=== PATIENT | male | born 1980 | race Caucasian/White ===

== ENCOUNTER 2018-04-04 19:31 | Observation (INO) ==
[2018-04-04] MEDS ORDERED: Temazepam 15 MG Capsule PO PRN (22:37)
[2018-04-04] MEDS ORDERED: Acetaminophen 325 MG Tablet PO PRN (22:37)
[2018-04-04] MEDS ORDERED: Bisacodyl 10 MG Supp RECTAL PRN (22:37)
[2018-04-04] MEDS: Sod Chloride 0.9% Inj 1,000 ML IV.CONT SCH (23:29)
[2018-04-05] MEDS ORDERED: Dextrose 50% in Water 50 ML Vial IV.PUSH PRN (07:38)
--- NOTE | 2018-04-05 07:47 | P.HP ---
History of Present Illness Primary Care Physician: UNKNOWN Chief Complaint: Abdominal pain, nausea, vomiting, fatigue History of Present Illness: 38-year-old male with known history of hypertension, diabetes, rheumatoid arthritis who presented to the hospital because of a plethora of symptoms. Over the last 3-5 days he has had multiple symptoms to include abdominal pain, fatigue, nausea, vomiting, loose stools. Patient was not getting any better so he came to emergency department for evaluation. Patient had workup performed which did indicate acute renal failure, lactic acidosis and it was recommended by the ER physician and the patient be observed in the hospital for further evaluation and management. Patient states that he cannot really explain the abdominal pain that is been experiencing but he did have episodes of nausea with vomiting. He denies any fever, chills, dark colored stools, blood in stool , hematemesis. Patient is diabetic and is on multiple medications. He also has hypertension and is also on Lasix,ARB,metolazone. This could have contributed to his acute renal failure. Patient does not indicate that he has any chronic kidney disease. Patient require further workup for completeness of evaluation. Patient does work at [employer], he is not exposed to any sick contacts. - Diagnosis (1) Abdominal pain (2) Nausea & vomiting (3) Acute renal failure (4) Lactic acidosis (5) Elevated liver enzymes Review of Systems All other systems reviewed negative except as stated in HPI Constitutional: Reports fatigue Gastrointestinal: Reports abdominal pain, Reports change in stools, Reports nausea, Reports vomiting PMFSH - History History Provided By: Patient - Medical History Medical History: Medical History (Last Reviewed 04/05/18 @ 07:31 by HERNANDO Manning) Hypertension Rheumatoid arthritis Type 2 diabetes mellitus - Surgical History Surgical History: Surgical History (Last Reviewed 04/05/18 @ 07:31 by HERNANDO Manning) H/O elbow surgery - Family History Family History: Family History (Last Updated 04/05/18 @ 07:31 by HERNANDO Manning) Father History of heart attack Mother No pertinent family history - Tobacco History Second Hand Smoke Exposure: No Tobacco Use In Past 30 Days: No (QUIT 20 YEARS AGO) Smoking Status: Former smoker Tobacco Type: Cigarettes Number of Pack Years (if former smoker): 3 - Alcohol History How Often Do You Have a Drink Containing Alcohol: Never - Substance Use History Substance History: No History of Abuse Medications and Allergies Active Medications: Active Medications Acetaminophen (Tylenol) 650 mg PO Q4H PRN PRN Reason: Temp > 100.4 Al Hydroxide/Mg Hydroxide (Milk Of Magnesia Liq) 30 ml PO Q12H PRN PRN Reason: Mild Constipation Bisacodyl (Dulcolax Supp) 10 mg RECTAL DAILY PRN PRN Reason: SEVERE CONSITIPATION Dextrose (D50w Vial) 50 ml IV.PUSH UNSCH PRN PRN Reason: PER HYPOGLYCEMIA PROTOCOL Glucagon (Glucagon Inj) 1 mg OTHER PRN PRN PRN Reason: for Hypoglycemia Protocol Sodium Chloride (Ns Inj) 1,000 mls @ 100 mls/hr IV.CONT .Q10H JOSE CRUZ Last Admin: 04/04/18 23:29 Dose: 100 mls/hr Insulin Aspart (Novolog Insulin Correctional Sugar Inj) 0 unit SQ ACHS JOSE CRUZ; Protocol Lactulose (Lactulose Liq) 30 ml PO DAILY PRN PRN Reason: SEVERE CONSITIPATION Ondansetron HCl (Zofran Inj) 4 mg IV.PUSH Q6H PRN PRN Reason: NAUSEA OR VOMITING Senna/Docusate Sodium (Farrah-Colace) 1 tab PO BID JOSE CRUZ Sennosides (Senokot) 17.2 mg PO Q12H PRN PRN Reason: Moderate Constipation Sodium Chloride (Ns Flush) 2 ml IV.FLUSH BID JOSE CRUZ Sodium Chloride (Ns Flush) 2 ml IV.FLUSH PRN PRN PRN Reason: FLUSH AFTER USING IV ACCESS Temazepam (Restoril) 15 mg PO HS PRN PRN Reason: INSOMNIA Allergies Allergy/AdvReac Type Severity Reaction Status Date / Time No Known Allergies Allergy Unverified 04/04/18 17:30 Home Medications Medication Instructions Recorded Confirmed Type dapagliflozin-metformin [Xigduo XR] 2 tab PO DAILY 04/04/18 04/05/18 History etanercept [Enbrel] 50 mg SUB-Q QWEEK 04/04/18 04/05/18 History folic acid 1 mg PO DAILY 04/04/18 04/05/18 History furosemide [Lasix] 20 mg PO DAILY 04/04/18 04/05/18 History insulin degludec-liraglutide 35 units SUB-Q DAILY 04/04/18 04/05/18 History [Xultophy 100/3.6] losartan 100 mg PO DAILY 04/04/18 04/05/18 History methotrexate sodium 2.5 mg PO DAILY 04/04/18 04/05/18 History metolazone 5 mg PO DAILY 04/04/18 04/05/18 History potassium chloride 20 meq PO DAILY 04/04/18 04/05/18 History prednisone 20 mg PO DAILY 04/04/18 04/05/18 History Exam Vital signs: Vital Signs 04/04/18 21:49 04/05/18 04:00 04/05/18 07:16 Temperature 96.2 F L 96.5 F L 96.6 F L Pulse Rate 95 H 83 80 Respiratory Rate 20 20 20 Blood Pressure 121/60 121/61 134/68 Pulse Oximetry 98 96 98 Intake & Output 04/04/18 04/05/18 04/05/18 18:59 06:59 18:59 Intake Total 720 / 720 Balance 720 / 720 Weight 133.6 kg Intake: Oral 720 / 720 Other: # Voids 1 # Bowel Movements 1 Narrative: GENERAL: Well-developed, well-nourished, in no acute distress. alert and orientated HEENT: Head is normocephalic without any lesions or masses noted. Facial features are symmetric. Eyes: Pupils equal round reactive to light. Extraocular muscles are intact. Conjunctivae were clear. Oropharyngeal: Pharynx without any erythema edema. Tongue is midline without deviation. Buccal mucosa is moist without any masses or lesions NECK: Supple without any masses. Trachea midline no deviation. No JVD, no bruits are appreciated. Posterior neck does have some excoriation noted around a skin fold. However no exudates, erythema CARDIAC: Regular rhythm, regular rate. S1/S2 are heard. No murmurs gallops or rubs. LUNGS: Clear to auscultation bilaterally. No wheeze, rhonchi or rales. No use of accessory muscles on inspiration or expiration. ABDOMEN: Soft, nontender. Nondistended. Bowel sounds heard in all 4 quadrants. No organomegaly or masses. Negative rebound, negative guarding EXTREMITIES: No edema, pulses are equal bilaterally. No cyanosis or clubbing NEUROLOGY: Mood and affect appear appropriate. Cranial nerves II through XII grossly intact. Muscle strength 5/5 in upper and lower extremities bilaterally. Deep tendon reflexes are 2+ in upper and lower extremities bilaterally. Results - Labs CBC & Chem 7: 04/05/18 07:15 04/05/18 07:15 Caprini VTE Risk Assessment Caprini VTE Risk Assessment: No/Low Risk (score <= 1) Caprini Risk Assessment Model: Point Value = 1 Point Value = 2 Point Value = 3 Point Value = 5 Age 41-60 Minor surgery BMI > 25 kg/m2 Swollen legs Varicose veins or History of unexplained or recurrent spontaneous Oral contraceptives or hormone replacement Sepsis (< 1 month) Serious lung disease, including pneumonia (< 1 month) Abnormal pulmonary function Acute myocardial infarction Congestive heart failure (< 1 month) History of inflammatory bowel disease Medical patient at bed rest Age 61-74 Arthroscopic surgery Major open surgery (> 45 min) Laparoscopic surgery (> 45 min) Malignancy Confined to bed (> 72 hours) Immobilizing plaster cast Central venous access Age >= 75 History of VTE Family history of VTE Factor V Leiden Prothrombin [id number] Lupus anticoagulant Anticardiolipin antibodies Elevated serum homocysteine Heparin-induced thrombocytopenia Other congenital or acquired thrombophilia Stroke (< 1 month) Elective arthroplasty Hip, pelvis, or leg fracture Acute spinal cord injury (< 1 month) Prophylaxis Regimen: Total Risk Factor Score Risk Level Prophylaxis Regimen 0-1 Low Early ambulation 2 Moderate Order ONE of the following: *Sequential Compression Device (SCD) *Heparin 5000 units SQ BID 3-4 Higher Order ONE of the following medications: *Heparin 5000 units SQ TID *Enoxaparin/Lovenox 40 mg SQ daily (WT < 150 kg, CrCl > 30 mL/min) *Enoxaparin/Lovenox 30 mg SQ daily (WT < 150 kg, CrCl > 10-29 mL/min) *Enoxaparin/Lovenox 30 mg SQ BID (WT < 150 kg, CrCl > 30 mL/min) AND/OR *Sequential Compression Device (SCD) 5 or more Highest Order ONE of the following medications: *Heparin 5000 units SQ TID (Preferred with Epidurals) *Enoxaparin/Lovenox 40 mg SQ daily (WT < 150 kg, CrCl > 30 mL/min) *Enoxaparin/Lovenox 30 mg SQ daily (WT < 150 kg, CrCl > 10-29 mL/min) *Enoxaparin/Lovenox 30 mg SQ BID (WT < 150 kg, CrCl > 30 mL/min) AND *Sequential Compression Device (SCD) Assessment and Plan - Assessment (1) Abdominal pain Code(s): R10.9 - Unspecified abdominal pain Status: Acute (2) Nausea & vomiting Code(s): R11.2 - Nausea with vomiting, unspecified Status: Acute (3) Acute renal failure Code(s): N17.9 - Acute kidney failure, unspecified Status: Acute (4) Lactic acidosis Code(s): E87.2 - Acidosis Status: Acute (5) Elevated liver enzymes Code(s): R74.8 - Abnormal levels of other serum enzymes Status: Acute - Plan Systemic inflammatory response syndrome -Patient is criteria with tachycardia, lactic acidosis, acute renal failure, no infection source has been identified at this time. Decide need further evaluation -Patient was given single dose of Rocephin emergency department, will avoid antibiotics at this time until infectious source can be identified -Chest x-ray do not indicate any acute abnormality -Urinalysis with clear without any signs of infection -Given the patient presenting symptoms and laboratory studies. Patient will require CT of the abdomen done stat to evaluate any abnormality, infection source -Continue follow blood cultures Acute renal failure -No history of chronic kidney disease, this is multifactorial with patient having nausea, vomiting, loose stools, multiple medications that can cause worsening renal function -We will need to await CT of the abdomen to rule out any etiologies such as obstructive uropathy -Continue IV fluids -Continue monitor renal function -Avoid nephrotoxins Elevated liver enzymes, unknown etiology -Awaiting CT scan for further evaluation -Continue follow liver enzymes -Obtain hepatitis panel Diabetes -Accu-Cheks with sliding scale insulin -Avoid metformin at this time Hypertension -Blood pressure stable at this time Rheumatoid arthritis -Continue folic acid DVT prevention -Sequential compression devices
[2018-04-05 07:56] LABS: Baso # (Auto) 0.1 th/mm3 (0.0-0.2); Baso % (Auto) 0.8 % (0.0-2.0); Eos # (Auto) 0.1 th/mm3 (0.0-0.4); Eos % (Auto) 1.8 % (0.0-4.0); Hematocrit 36.7 % (39.0-51.0); Lymph # (Auto) 2.3 th/mm3 (1.0-4.8); Lymph % (Auto) 27.4 % (9.0-44.0); Mean Corpuscular HGB Conc 35.5 % (32.0-36.0); Mean Corpuscular Hemoglobin 29.5 pg (27.0-34.0); Mean Corpuscular Volume 82.9 fL (80.0-100.0); Mean Platelet Volume 8.6 fL (7.0-11.0); Mono # (Auto) 0.9 th/mm3 (0.0-0.9); Mono % (Auto) 11.4 % (0.0-8.0); Neut # (Auto) 4.9 th/mm3 (1.8-7.7); Neut % (Auto) 58.6 % (16.0-70.0); Platelet Count 217 th/mm3 (150-450); Red Blood Count 4.42 mil/mm3 (4.50-5.90); Red Cell Distribution Width 16.4 % (11.6-17.2); White Blood Count 8.3 th/mm3 (4.0-11.0)
[2018-04-05] MEDS: Insulin NovoLOG Aspart Correctional Sugar Inj SQ SCH ×4 (07:56→20:08)
[2018-04-05] MEDS ORDERED: Diatrizoate Meglum/Diatrizoate Sod Liq 9 ML UDC PO ONE (08:00)
[2018-04-05 08:04] LABS: Chloride 96 meq/L (98-107); Potassium 3.7 meq/L (3.5-5.1); Sodium 135 meq/L (136-145)
[2018-04-05 08:09] LABS: Calcium 8.5 mg/dL (8.5-10.1)
[2018-04-05 08:10] LABS: Anion Gap 6 meq/L (5-15); Blood Urea Nitrogen 65 mg/dL (7-18); Carbon Dioxide 32.8 meq/L (21.0-32.0); Glucose,Random 122 mg/dL (74-106)
[2018-04-05 08:13] LABS: Glomerular Filtration Rate 52 mL/min (>89)
[2018-04-05 08:55] LABS: Albumin 3.4 g/dL (3.4-5.0)
[2018-04-05] MEDS: Sod Chloride 0.9% Inj 1,000 ML IV.CONT SCH ×2 (08:55→20:08)
[2018-04-05] MEDS: Senna/Docusate Sodium 8.6/50 MG Tablet PO SCH ×2 (08:56→20:09)
[2018-04-05 08:58] LABS: Alanine Aminotransferase 63 U/L (12-78); Aspartate Aminotransferase 30 U/L (15-37)
[2018-04-05 09:00] LABS: Total Protein 7.6 g/dL (6.4-8.2)
[2018-04-05 09:02] LABS: Alkaline Phosphatase 53 U/L (45-117)
[2018-04-05 10:41] LABS: Hepatitits B Surface Antigen Nonreactive (Nonreactive)
[2018-04-05 11:06] LABS: Hepatitis A IgM Antibody Nonreactive (Nonreactive)
--- NOTE | 2018-04-05 11:17 | CT ---
EXAM DATE: 04/05/2018 11:08 AM EDT AGE/SEX: 38 years / Male INDICATIONS: Elevated enzymes and acute renal failure, with nausea and vomiting. CLINICAL DATA: This is the patient's initial encounter. Patient reports that signs and symptoms have been present for 3 days and indicates a pain score of 0/10. MEDICAL/SURGICAL HISTORY: Diabetes. Hypertension. . Elbow surgery. RADIATION DOSE: 25.01 CTDI (mGy) ; Patient body habitus COMPARISON: No prior exams available for comparison. TECHNIQUE: Multiple contiguous axial images were obtained through the abdomen. Images were obtained using multiple row detector helical technique. Using automated exposure control and adjustment of the mA and/or kV according to patient size, radiation dose was kept as low as reasonably achievable to o btain optimal diagnostic quality images. DICOM format image data is available electronically for rev iew and comparison. FINDINGS: Lower Lungs: The visualized lower lungs are clear. Liver: The liver is decreased in attenuation without space-occupying lesion. There is no dilation of the biliary tree. No abdominal ascites. Spleen: Homogeneous density without enlargement. Pancreas: Unremarkable without mass or calcification. Kidneys: Normal in size and shape. No evidence of mass or hydronephrosis. Adrenal Glands: Unremarkable. Aorta: The aorta and proximal iliac vessels are grossly unremarkable without aneurysmal dilation. Bowel/Mesentery: The bowel loops are grossly unremarkable. The cecum and sigmoid colon have a normal configuration. Normal appendix. Abdominal Wall: Intact. Retroperitoneum: No evidence of adenopathy in the retrocrural, para-aortic, or deep pelvic regions. Bladder: Contours are smooth. Reproductive Organs: No abnormal masses or calcifications seen. Inguinal: The inguinal region is unremarkable without evidence of adenopathy. Bony Structures: Unremarkable. CONCLUSION: 1. Moderate hepatic steatosis. 2. No renal calculi or hydronephrosis. Electronically signed by: Antonio Lopez MD 04/05/2018 11:15 AM EDT
[2018-04-06 05:56] LABS: Baso # (Auto) 0.1 th/mm3 (0.0-0.2); Baso % (Auto) 1.1 % (0.0-2.0); Eos # (Auto) 0.2 th/mm3 (0.0-0.4); Eos % (Auto) 3.1 % (0.0-4.0); Hemoglobin 12.9 gm/dL (13.0-17.0); Lymph # (Auto) 2.4 th/mm3 (1.0-4.8); Lymph % (Auto) 37.5 % (9.0-44.0); Mean Corpuscular HGB Conc 33.9 % (32.0-36.0); Mean Corpuscular Hemoglobin 28.9 pg (27.0-34.0); Mean Corpuscular Volume 85.4 fL (80.0-100.0); Mean Platelet Volume 7.7 fL (7.0-11.0); Mono # (Auto) 0.7 th/mm3 (0.0-0.9); Mono % (Auto) 11.3 % (0.0-8.0); Platelet Count 204 th/mm3 (150-450); Red Blood Count 4.45 mil/mm3 (4.50-5.90); Red Cell Distribution Width 15.9 % (11.6-17.2); White Blood Count 6.4 th/mm3 (4.0-11.0)
[2018-04-06 06:07] LABS: Chloride 101 meq/L (98-107); Potassium 3.1 meq/L (3.5-5.1); Sodium 138 meq/L (136-145)
[2018-04-06 06:10] LABS: Albumin 3.2 g/dL (3.4-5.0); Anion Gap 5 meq/L (5-15); Calcium 8.5 mg/dL (8.5-10.1); Carbon Dioxide 32.5 meq/L (21.0-32.0); Glucose,Random 118 mg/dL (74-106)
[2018-04-06 06:12] LABS: Blood Urea Nitrogen 29 mg/dL (7-18)
[2018-04-06 06:21] LABS: Alanine Aminotransferase 72 U/L (12-78); Alkaline Phosphatase 51 U/L (45-117); Aspartate Aminotransferase 51 U/L (15-37); Glomerular Filtration Rate Greater Than 89 mL/min (>89); Total Protein 6.9 g/dL (6.4-8.2)
[2018-04-06] MEDS: Insulin NovoLOG Aspart Correctional Sugar Inj SQ SCH (07:40)
--- NOTE | 2018-04-06 08:35 | P.DS ---
Date of admission: 04/04/18 21:37 Primary care physician: UNKNOWN Attending physician on discharge: Jenelle Zarate Anticipated date of discharge: 04/06/18 Brief History from admission: 38-year-old male with known history of hypertension, diabetes, rheumatoid arthritis who presented to the hospital because of a plethora of symptoms. Over the last 3-5 days he has had multiple symptoms to include abdominal pain, fatigue, nausea, vomiting, loose stools. Patient was not getting any better so he came to emergency department for evaluation. Patient had workup performed which did indicate acute renal failure, lactic acidosis and it was recommended by the ER physician and the patient be observed in the hospital for further evaluation and management. Patient states that he cannot really explain the abdominal pain that is been experiencing but he did have episodes of nausea with vomiting. He denies any fever, chills, dark colored stools, blood in stool , hematemesis. Patient is diabetic and is on multiple medications. He also has hypertension and is also on Lasix,ARB,metolazone. This could have contributed to his acute renal failure. Patient does not indicate that he has any chronic kidney disease. Patient require further workup for completeness of evaluation. Patient does work at [employer], he is not exposed to any sick contacts. DS: Diagnosis - Discharge Diagnosis (1) Abdominal pain Status: Acute (2) Nausea & vomiting Status: Acute (3) Acute renal failure Status: Acute (4) Lactic acidosis Status: Acute (5) Elevated liver enzymes Status: Acute DS: Medications - Discharge Medications Prescriptions: insulin degludec-liraglutide [Xultophy 100/3.6] 15 units SUB-Q DAILY #1 vial losartan [Cozaar] 50 mg PO DAILY #30 tab DS: Summary Hospital Course: 38-year-old male who originally presented the hospital because of abdominal discomfort, nausea, vomiting. Patient had workup done emergency department found to have elevated liver enzymes, acute renal failure. Patient was admitted to the hospital with further evaluation with CT of the abdomen which did show hepatic steatosis. Liver enzymes did improve and go to normal. Hepatitis profile was negative for any viral hepatitis. Patient was tolerating diet in the hospital. Patient was maintained on IV fluids with significant improvement of his renal function. Upon reviewing patient's medication list it does appears that he was on multiple medications that could also cause the renal failure in conjunction with the mild dehydration. Patient's metformin,ARB , Lasix, metolazone was held. Patient's renal function did return to normal. Patient was counseled that his blood pressure remained quite stable during his stay in the hospital. Would recommend discontinuation of the diuretics, will resume losartan at half the dose to continue with renal protection. Will discontinue metformin at this time. Patient's diabetes was in rather good control while here in the hospital. He only received 8 units of insulin during his entire stay. It was discussed with the patient that he needs to check his blood sugars 3 times daily before meals and at bedtime, keep a running log. Discontinue his combination medication with metformin. Continue his long- acting insulin at half the dose. Patient should follow up with biomedical doctor for continued adjustment of his medications. Patient is doing quite well. Patient very eager to go home. Patient clinically stable we will discharge patient accordingly. - Time Spent with Patient Total time spent providing and/or coordinating discharge services: Greater than 30 minutes - Quality: VTE Deep Vein Thrombosis/Pulmonary Embolism Present on Admission: No Exam Vital signs: Vital Signs 04/05/18 10:56 04/05/18 15:04 04/05/18 20:00 Temperature 96.8 F L 96.5 F L 97.0 F L Pulse Rate 76 74 104 H Respiratory Rate 20 20 20 Blood Pressure 130/70 138/74 138/76 Pulse Oximetry 98 98 96 04/06/18 00:00 Temperature 96.9 F L Pulse Rate 72 Respiratory Rate 20 Blood Pressure 128/70 Pulse Oximetry Intake & Output 04/05/18 04/06/18 04/06/18 18:59 06:59 18:59 Intake Total 3200 / 3200 240 / 240 Balance 3200 / 3200 240 / 240 Weight 133.7 kg Intake: IV 1999 NS Inj 1,000 ML @ 100 mls/hr IV 1999 .CONT .Q10H JOSE CRUZ Rx#:[id number] Oral 1200 / 1200 240 / 240 Other: # Voids 4 3 # Bowel Movements 1 Narrative: GENERAL: Well-developed, well-nourished, in no acute distress. alert and orientated HEENT: Head is normocephalic without any lesions or masses noted. Facial features are symmetric. Eyes: Extraocular muscles are intact. Conjunctivae were clear. NECK: Supple without any masses. Trachea midline no deviation. No JVD, CARDIAC: Regular rhythm, regular rate. S1/S2 are heard. No murmurs gallops or rubs. LUNGS: Clear to auscultation bilaterally. No wheeze, rhonchi or rales. No use of accessory muscles on inspiration or expiration. ABDOMEN: Soft, nontender. Nondistended. Bowel sounds heard in all 4 quadrants. No organomegaly or masses. Negative rebound, negative guarding EXTREMITIES: No edema, pulses are equal bilaterally. No cyanosis or clubbing NEUROLOGY: Mood and affect appear appropriate. Cranial nerves II through XII grossly intact. Moving all extremities, speech is clear Results Procedures completed during hospitalization: none Labs on day of discharge: Labs from last 24 hours 04/06/18 04/06/18 04/05/18 05:45 05:45 20:01 CBC w Diff Auto diff final WBC 6.4 RBC 4.45 L Hgb 12.9 L Hct 38.0 L MCV 85.4 MCH 28.9 MCHC 33.9 RDW 15.9 Plt Count 204 MPV 7.7 Neut % (Auto) 47.0 Lymph % (Auto) 37.5 [place] % (Auto) 11.3 H Eos % (Auto) 3.1 Baso % (Auto) 1.1 Neut # (Auto) 3.0 Lymph # (Auto) 2.4 [place] # (Auto) 0.7 Eos # (Auto) 0.2 Baso # (Auto) 0.1 WBC Differential . Differential Comment . Sodium 138 Potassium 3.1 L Chloride 101 Carbon Dioxide 32.5 H Anion Gap 5 BUN 29 H Creatinine 0.84 Estimated GFR Greater than 89 POC Glucose 177 H Random Glucose 118 H Lactic Acid Calcium 8.5 Total Bilirubin 0.8 AST 51 H ALT 72 Alkaline Phosphatase 51 Total Protein 6.9 D Albumin 3.2 L Hepatitis A IgM Ab Hep Bs Antigen Hep B Core IgM Ab Hep C IgG Ab 04/05/18 04/05/18 04/05/18 16:09 11:25 08:43 CBC w Diff WBC RBC Hgb Hct MCV MCH MCHC RDW Plt Count MPV Neut % (Auto) Lymph % (Auto) [place] % (Auto) Eos % (Auto) Baso % (Auto) Neut # (Auto) Lymph # (Auto) [place] # (Auto) Eos # (Auto) Baso # (Auto) WBC Differential Differential Comment Sodium Potassium Chloride Carbon Dioxide Anion Gap BUN Creatinine Estimated GFR POC Glucose 131 H 325 H Random Glucose Lactic Acid 1.2 Calcium Total Bilirubin AST ALT Alkaline Phosphatase Total Protein Albumin Hepatitis A IgM Ab Hep Bs Antigen Hep B Core IgM Ab Hep C IgG Ab 04/05/18 04/05/18 07:15 07:15 CBC w Diff WBC RBC Hgb Hct MCV MCH MCHC RDW Plt Count MPV Neut % (Auto) Lymph % (Auto) [place] % (Auto) Eos % (Auto) Baso % (Auto) Neut # (Auto) Lymph # (Auto) [place] # (Auto) Eos # (Auto) Baso # (Auto) WBC Differential Differential Comment Sodium 135 L Potassium 3.7 Chloride 96 L D Carbon Dioxide 32.8 H Anion Gap 6 BUN 65 H Creatinine 1.50 H Estimated GFR 52 L POC Glucose Random Glucose 122 H Lactic Acid Calcium 8.5 D Total Bilirubin 0.6 AST 30 ALT 63 Alkaline Phosphatase 53 Total Protein 7.6 D Albumin 3.4 D Hepatitis A IgM Ab Nonreactive Hep Bs Antigen Nonreactive Hep B Core IgM Ab Nonreactive Hep C IgG Ab Nonreactive - Impressions ITS Impressions Abdomen/Pelvis CT 04/05/18 07:32 CONCLUSION: 1. Moderate hepatic steatosis. 2. No renal calculi or hydronephrosis. Discharge Plan - Discharge Disposition Patient Disposition: 01 Discharge Home - Discharge Condition Condition: Stable - Discharge Order Discharge Orders: Discharge Order (Routine); Ordered 04/06/18 Ordered By: Max Pérez - Discharge Details Anticipated Discharge Date: 04/06/18 - Physicians Team Primary Care Provider: UNKNOWN, Attending Provider: Jenelle Zarate - Rxs /Orders / Referrals /Forms Prescriptions: New losartan [Cozaar] 25 mg Tablet 50 mg PO DAILY Qty: 30 RF: 0 Continue etanercept [Enbrel] 50 mg/mL (0.98 mL) Syringe 50 mg SUB-Q QWEEK folic acid 1 mg Tablet 1 mg PO DAILY methotrexate sodium 2.5 mg Tablet 2.5 mg PO DAILY prednisone 20 mg Tablet 20 mg PO DAILY Changed insulin degludec-liraglutide [Xultophy 100/3.6] 100 unit-3.6 mg /mL (3 mL) Insulin Pen 15 units Sub-Q DAILY Qty: 1 Changed from: 35 units subcutaneous daily Discontinued dapagliflozin-metformin [Xigduo XR] 5-1,000 mg Tablet, Ir - Er, Biphasic 24hr 2 tab PO DAILY furosemide [Lasix] 20 mg Tablet 20 mg PO DAILY losartan 100 mg Tablet 100 mg PO DAILY metolazone 5 mg Tablet 5 mg PO DAILY potassium chloride 20 mEq Tablet Extended Release 20 meq PO DAILY Referrals: UNKNOWN, [Primary Care Provider] - See Instructions - Post Discharge Care Plan Care Plan Goals: Your Health Problems: Goals to Promote Your Health: * To prevent worsening of your condition * To maintain your health at the optimal level Directions to Meet Your Goals: * Take your medications as prescribed * Follow your dietary instruction * Follow activity as directed * Keep your appointments as scheduled * Take your immunizations and boosters as scheduled * If your symptoms worsen call your PCP * If no PCP go to Urgent Care or Emergency Room Smoking is dangerous to your health. Avoid second hand smoke. You may reach the 24-hour crisis hotline for domestic abuse at .
[2018-04-06] MEDS: Senna/Docusate Sodium 8.6/50 MG Tablet PO SCH (08:50)
== END 2018-04-06 10:17 | disposition home or self-care (01) ==
LOC: PHEDDLT 19:31 → PH3 19:31
PROVIDERS: ADMIT Hospitalist; ATTEND Hospitalist